=== PATIENT | male | born 1980 | race Caucasian/White ===

== ENCOUNTER 2020-12-26 12:16 | Inpatient (IN) | payer OTHER ==
[~2020-12-26] VITALS: Ht 170.2 cm; Wt 88.5 kg
[2020-12-26 14:11] LABS: RED BLOOD COUNT 4.94 M/UL (4.20-5.50); WHITE BLOOD COUNT 19.2 K/UL (4.5-11.0)
[2020-12-26 14:25] LABS: BUN/CREATININE RATIO 16 (0-10)
[2020-12-26] MEDS ORDERED: LEVOFLOXACIN750 MG PO (17:26)
[2020-12-26] MEDS ORDERED: GABAPENTIN600 MG PO (17:29)
[2020-12-26] MEDS ORDERED: PREDNISONE10 M1 PO (17:29)
[2020-12-27 04:01] LABS: HEMOGLOBIN 13.1 gm/dl (14.0-17.5); WHITE BLOOD COUNT 14.5 K/UL (4.5-11.0)
[2020-12-27 04:05] LABS: RED BLOOD COUNT 4.41 M/UL (4.20-5.50)
[2020-12-27 04:32] LABS: BUN/CREATININE RATIO 15 (0-10)
[2020-12-27] MEDS ORDERED: AUGMENTIN 875-1 EACH PO (13:42)
--- NOTE | 2020-12-27 16:03 | NUR ---
GAVE PT MEDICATIONS FROM THE PHARMACY SAFE AT BEDSIDE
== END 2020-12-27 16:02 | disposition home or self-care (01) | DRG 871 ==
LOC: ER1 12:16 → CDU 15:25 → MED SURG 4 17:16
PROVIDERS: Emergency Medicine; Physician Assistant Medical; ADMIT Internal Medicine
DX: A41.9 Sepsis, unspecified organism (principal); J69.0 Pneumonitis due to inhalation of food and vomit; E87.2 Acidosis; F10.129 Alcohol abuse with intoxication, unspecified; E78.5 Hyperlipidemia, unspecified; E87.6 Hypokalemia; Z90.49 Acquired absence of other specified parts of digestive tract; Z20.822 Contact with and (suspected) exposure to COVID-19; F17.200 Nicotine dependence, unspecified, uncomplicated; Y90.6 Blood alcohol level of 120-199 mg/100 ml
CPT/HCPCS: 36415; 36600; 71045; 71046; 80053; 80307; 81001; 82550; 82553; 82803; 83605; 83690; 83735; 83874; 84484; 85025; 85379; 85610; 85730; 87040; 87081; 87086; 93005; 96374; 99284; C9113; G0480; J2543; J7030; J7040; U0002